=== PATIENT | female | born 1935 | race Caucasian/White ===

== ENCOUNTER 2017-01-12 02:01 | Inpatient (IN) ==
[2017-01-12 02:53] LABS: MANUAL DIFF NEEDED? NO
[2017-01-12 02:57] LABS: BASO% 0.4 % (0.0-0.8); EOS# 0.16 X1000 (0.0-0.7); EOS% 2.3 % (0.0-10.0); HEMATOCRIT 42.5 % (37.0-47.0); HEMOGLOBIN 13.9 g/dL (12.0-16.0); IMM GRAN# 0.03 X1000 (0.0-0.04); IMM GRAN% 0.4 % (0.0-0.5); LYMPH# 2.72 X1000 (1.2-3.4); LYMPH% 38.6 % (20.5-51.1); MCH 31.7 PG (27-31); MCHC 32.7 g/dL (33-37); MONO# 0.36 X1000 (0.11-0.59); MONO% 5.1 % (1.7-9.3); MPV 9.4 FL (7.4-10.4); NEUT% 53.2 % (42.2-75.2); PLT 185 X1000 (130-400); RBC 4.38 XMIL (4.2-5.4)
[2017-01-12 03:21] LABS: AGAP 11; ALBUMIN 4.3 g/dL (3.5-5.0); ALKALINE PHOSPHATASE 72 U/L (32-104); AMYLASE 58 U/L (20-200); BUN 23 mg/dL (8-22); CHLORIDE 104 mmol/L (98-107); COSMO 285; GOT 16 U/L (10-30); GPT 13 U/L (10-36); LIPASE 25 U/L (13-60); POTASSIUM 3.8 mmol/L (3.5-5.1); SODIUM 141 mmol/L (136-145); TCO2 26 mmol/L (25-35); TOTAL PROTEIN 7.6 g/dL (6.3-8.3)
[2017-01-12 03:37] LABS: BILIRUBIN URINE NEGATIVE (NEGATIVE); BLOOD URINE 1+ (NEGATIVE); CLARITY SL. CLOUDY (CLEAR); COLOR YELLOW; GLUCOSE URINE NEGATIVE (NEGATIVE); LEUKOCYTES URINE NEGATIVE (NEGATIVE); NITRITE URINE NEGATIVE (NEGATIVE); PROTEIN URINE NEGATIVE (NEGATIVE); SP GRAVITY URINE 1.005; UROBILINOGEN URINE NORMAL
[2017-01-12 03:59] LABS: URINE EPITHELIAL CELLS <10 /HPF (<10); URINE RBC <10 /HPF (<10)
[2017-01-12 04:00] LABS: URINE CULTURE PL NEEDED? YES; URINE SOURCE CLEAN CATCH
[2017-01-12 04:01] LABS: URINE WBC NS /HPF (<10)
[2017-01-12] MEDS ORDERED: DILAUDID IV ONE (06:30)
[2017-01-12] MEDS ORDERED: ZOFRAN IV ONE (06:30)
[2017-01-12] MEDS ORDERED: ZOFRAN IV PRN ×2 (08:22→19:26)
[2017-01-12] MEDS ORDERED: NS 1,000 ML IV SCH (08:25)
[2017-01-12] MEDS ORDERED: SODIUM CHLORIDE 0.9% INJ SCH (08:30)
[2017-01-12] MEDS ORDERED: PROTONIX IV SCH (08:30)
[2017-01-12] MEDS ORDERED: DILAUDID IV PRN (09:29)
[2017-01-12] MEDS: MORPHINE IV PRN ×2 (10:41→12:52)
[2017-01-12] MEDS ORDERED: QUELICIN (DOSE) ONE (15:42)
[2017-01-12] MEDS ORDERED: NEO-SYNEPHRINE ONE (15:42)
[2017-01-12] MEDS ORDERED: NORCURON ONE (15:42)
[2017-01-12] MEDS ORDERED: SODIUM CHLORIDE 0.9% 30 ML ONE (15:42)
[2017-01-12] MEDS ORDERED: ROBINUL ONE ×2 (15:42→16:52)
[2017-01-12] MEDS ORDERED: XYLOCAINE-MPF 2% ONE (15:42)
[2017-01-12] MEDS ORDERED: DIPRIVAN 1% ONE (15:45)
[2017-01-12] MEDS ORDERED: FENTANYL ONE (15:45)
[2017-01-12] MEDS ORDERED: INVANZ 1 GM/NS 1 GM/50 ML IVPB ONE (15:58)
[2017-01-12 16:51] LABS: URINE MICRO REVIEW NEEDED? NO; URINE SOURCE CATH
[2017-01-12] MEDS ORDERED: ZOFRAN ONE (16:53)
[2017-01-12] MEDS ORDERED: NEOSTIGMINE ONE (16:53)
[2017-01-12 16:57] LABS: BILIRUBIN URINE NEGATIVE (NEGATIVE); BLOOD URINE NEGATIVE (NEGATIVE); COLOR YELLOW; GLUCOSE URINE NEGATIVE (NEGATIVE); LEUKOCYTES URINE NEGATIVE (NEGATIVE); NITRITE URINE NEGATIVE (NEGATIVE); PH URINE 6.5; PROTEIN URINE NEGATIVE (NEGATIVE); SP GRAVITY URINE 1.042; TURBIDITY URINE CLEAR (CLEAR); UROBILINOGEN URINE NORMAL (NORMAL)
[2017-01-12 16:58] LABS: UR EPITHELIAL CELLS <10 /HPF (<10); URINE BACTERIA NEGATIVE /HPF; URINE RBC <10 /HPF (<10); URINE WBC <10 /HPF (<10)
[2017-01-12] MEDS ORDERED: EPHEDRINE ONE (17:51)
[2017-01-12] MEDS ORDERED: DILAUDID ONE ×2 (18:23→18:54)
[2017-01-12] MEDS ORDERED: OFIRMEV 1000 MG/ISOTONIC SOLN 1,000 MG/100 ML BOTTLE ONE (19:12)
[2017-01-12] MEDS ORDERED: LR 1,000 ML IV SCH (20:00)
[2017-01-12] MEDS: NORCO-10 PO PRN (22:28)
[2017-01-12] MEDS: PERIDEX MT SCH (22:28)
[2017-01-13] MEDS: NORCO-10 PO PRN (03:28)
[2017-01-13] MEDS: DILAUDID IV PRN ×3 (04:40→11:05)
[2017-01-13 05:41] LABS: HEMATOCRIT 41.8 % (37.0-47.0); HEMOGLOBIN 13.8 g/dL (12.0-16.0); MCH 32.7 PG (27-31); MCV 99.1 FL (81-99); MPV 9.6 FL (7.4-10.4); RBC 4.22 XMIL (4.2-5.4)
[2017-01-13 05:54] LABS: AGAP 13; BUN 14 mg/dL (8-22); CALCIUM 8.2 mg/dL (8.8-10.2); CHLORIDE 98 mmol/L (98-107); COSMO 278; POTASSIUM 3.8 mmol/L (3.5-5.1); SODIUM 138 mmol/L (136-145); TCO2 27 mmol/L (25-35)
[2017-01-13] MEDS: MORPHINE IV PRN (07:56)
[2017-01-13] MEDS ORDERED: NEURONTIN PO PRN (09:56)
[2017-01-13] MEDS: PERIDEX MT SCH ×2 (11:05→20:40)
[2017-01-13] MEDS: TORADOL IV SCH ×3 (11:06→22:58)
[2017-01-13] MEDS: LR 1,000 ML IV SCH ×2 (11:06→11:10)
[2017-01-13] MEDS: OFIRMEV 1000 MG/ISOTONIC SOLN 1,000 MG/100 ML BOTTLE IV SCH ×3 (11:06→22:58)
[2017-01-13] MEDS: FISH OIL CONCENTRATE PO SCH ×2 (16:19→20:40)
[2017-01-14] MEDS: OFIRMEV 1000 MG/ISOTONIC SOLN 1,000 MG/100 ML BOTTLE IV SCH ×4 (05:44→21:41)
[2017-01-14] MEDS: TORADOL IV SCH ×4 (05:44→21:41)
[2017-01-14] MEDS: SYNTHROID PO SCH ×2 (05:44→07:23)
[2017-01-14] MEDS: LR 1,000 ML IV SCH ×2 (05:45→06:21)
[2017-01-14 05:52] LABS: MANUAL DIFF NEEDED? NO
[2017-01-14 05:57] LABS: BASO% 0.1 % (0.0-0.8); EOS# 0.08 X1000 (0.0-0.7); HEMATOCRIT 37.8 % (37.0-47.0); HEMOGLOBIN 12.5 g/dL (12.0-16.0); IMM GRAN# 0.02 X1000 (0.0-0.04); IMM GRAN% 0.3 % (0.0-0.5); LYMPH# 1.47 X1000 (1.2-3.4); LYMPH% 18.8 % (20.5-51.1); MCH 32.4 PG (27-31); MCHC 33.1 g/dL (33-37); MCV 97.9 FL (81-99); MONO# 0.35 X1000 (0.11-0.59); MONO% 4.5 % (1.7-9.3); MPV 9.9 FL (7.4-10.4); NEUT% 75.3 % (42.2-75.2); PLT 162 X1000 (130-400); RBC 3.86 XMIL (4.2-5.4)
[2017-01-14 06:21] LABS: AGAP 7; BUN 11 mg/dL (8-22); CALCIUM 8.8 mg/dL (8.8-10.2); CHLORIDE 108 mmol/L (98-107); COSMO 292; POTASSIUM 3.4 mmol/L (3.5-5.1); SODIUM 147 mmol/L (136-145); TCO2 32 mmol/L (25-35)
[2017-01-14] MEDS ORDERED: D5W 1,000 ML IV SCH (06:29)
[2017-01-14] MEDS ORDERED: KLOR-CON PO ONE (06:30)
[2017-01-14] MEDS: PYRIDOXINE PO SCH (08:54)
[2017-01-14] MEDS: FISH OIL CONCENTRATE PO SCH ×3 (08:55→16:35)
[2017-01-14] MEDS: CENTRUM SILVER PO SCH (08:55)
[2017-01-14] MEDS: ASPIRIN EC PO SCH (08:55)
[2017-01-14] MEDS: PERIDEX MT SCH ×2 (08:56→21:41)
[2017-01-14] MEDS: PATIENT'S OWN MED PO SCH (10:34)
[2017-01-14] MEDS: D5W 1,000 ML IV SCH (11:08)
[2017-01-14] MEDS: CLARITIN PO SCH (11:47)
[2017-01-14] MEDS: LOVENOX SUBQ SCH (12:13)
[2017-01-14 17:15] LABS: AGAP 7; BUN 9 mg/dL (8-22); CALCIUM 8.7 mg/dL (8.8-10.2); CHLORIDE 105 mmol/L (98-107); COSMO 286; SODIUM 144 mmol/L (136-145); TCO2 32 mmol/L (25-35)
[2017-01-14] MEDS: DILAUDID IV PRN (22:48)
[2017-01-15] MEDS: OFIRMEV 1000 MG/ISOTONIC SOLN 1,000 MG/100 ML BOTTLE IV SCH ×5 (00:15→22:23)
[2017-01-15] MEDS: TORADOL IV SCH ×3 (00:16→10:15)
[2017-01-15] MEDS: SYNTHROID PO SCH ×2 (05:35→06:45)
[2017-01-15] MEDS: PERIDEX MT SCH ×2 (10:15→22:23)
[2017-01-15] MEDS: CLARITIN PO SCH (10:15)
[2017-01-15] MEDS: ASPIRIN EC PO SCH (10:16)
[2017-01-15] MEDS: PATIENT'S OWN MED PO SCH (10:16)
[2017-01-15] MEDS: FISH OIL CONCENTRATE PO SCH ×3 (10:16→16:50)
[2017-01-15] MEDS: PYRIDOXINE PO SCH (10:16)
[2017-01-15] MEDS: CENTRUM SILVER PO SCH (10:16)
[2017-01-15] MEDS ORDERED: PERCOCET-10 PO PRN (10:45)
[2017-01-15] MEDS: D5W 1,000 ML IV SCH (13:11)
[2017-01-15] MEDS: LOVENOX SUBQ SCH (13:12)
[2017-01-15] MEDS ORDERED: DILAUDID IV PRN (14:14)
[2017-01-15] MEDS ORDERED: AYR NASAL SPRAY NAS PRN (21:36)
[2017-01-16] MEDS: OFIRMEV 1000 MG/ISOTONIC SOLN 1,000 MG/100 ML BOTTLE IV SCH (06:27)
[2017-01-16] MEDS: SYNTHROID PO SCH (06:28)
[2017-01-16 07:27] VITALS: BP 150/78
== END 2017-01-16 09:31 | disposition home health service (06) ==
LOC: P.ED 02:01 → 4N 07:17 → SUATTDRO 07:17 → 4N 07:52
PROVIDERS: ATTEND Internal Medicine